=== PATIENT | male | born 1970 | race Caucasian/White ===

== ENCOUNTER 2020-02-02 20:55 | Emergency (ER) | payer BC ==
[2020-02-02 21:44] LABS: Absolute Lymphocytes (CBC) 2.9 K/uL (0.7-4.9); Basophils % 0.6 % (0-1.3); Lymphocytes % 33.7 % (15.3-44.8); MPV 8.4 fL (7.6-11.3); RBC Red Blood Cell Count 5.15 M/uL (4.33-5.43)
[2020-02-02 21:46] LABS: Protime INR 0.91
--- NOTE | 2020-02-02 21:59 | RAD REPORT ---
EXAM DESCRIPTION: Beth Single View02/02/2020 9:51 pm CLINICAL HISTORY: Chest pain COMPARISON: none FINDINGS: The lungs appear clear of acute infiltrate. The heart is normal size IMPRESSION: No acute abnormalities displayed
[2020-02-02 22:10] LABS: ALT/SGPT 39 U/L (12-78); AST/SGOT 15 U/L (15-37); Albumin 3.7 g/dL (3.4-5.0); Alkaline Phosphatase 78 U/L (45-117); BUN Blood Urea Nitrogen 14 mg/dL (7-18); Bicarbonate 26 mmol/L (21-32); Bilirubin Direct < 0.1 mg/dL (0-0.2); Bilirubin Total 0.3 mg/dL (0.2-1.0); Glucose Level 104 mg/dL (74-106); Magnesium 2.3 mg/dL (1.8-2.4); NT PRO-BNP 41 pg/mL (<125); Potassium 3.2 mmol/L (3.5-5.1); Protein, Total 7.1 g/dL (6.4-8.2); Sodium Level 140 mmol/L (136-145); Troponin (Emerg Dept Use Only) < 0.02 ng/mL (0.0-0.045)
--- NOTE | 2020-02-02 23:50 | EDPHYS ---
Physician Documentation [facility] Name: Reynold Billy Age: 49 yrs Sex: Male : 1970 Arrival Date: 02/02/2020 Time: 20:56 Bed 4 Private MD: ED Physician Joselito Ojeda HPI: 02/01 22:31 This 49 yrs old Male presents to ER via Ambulatory with complaints of Chest tw4 Pain. 22:31 The patient or guardian reports chest pain that is located primarily in the anterior tw4 chest wall. Onset: today. The pain does not radiate. Associated signs and symptoms: The patient has no apparent associated signs or symptoms. The chest pain is described as burning. Duration: The patient or guardian reports a single episode. Modifying factors: The symptoms are alleviated by nothing. the symptoms are aggravated by nothing. Severity of pain: At its worst the pain was moderate in the emergency department the pain is unchanged. The patient has not experienced similar symptoms in the past. Historical: - Allergies: 21:16 No Known Allergies; ca1 - Home Meds: 21:16 losartan oral oral [Active]; amlodipine oral [Active]; ca1 - PMHx: 21:16 Hypertension; ca1 - PSHx: 21:16 Elbow surg; ca1 - Immunization history:: Adult Immunizations up to date. - Social history:: Smoking status: Patient denies any tobacco usage or history of. ROS: 22:31 Constitutional: Negative for fever, chills, and weight loss, Eyes: Negative for injury, tw4 pain, redness, and discharge, Respiratory: Negative for shortness of breath, cough, wheezing, and pleuritic chest pain, Abdomen/GI: Negative for abdominal pain, nausea, vomiting, diarrhea, and constipation, Back: Negative for injury and pain, MS/Extremity: Negative for injury and deformity, Skin: Negative for injury, rash, and discoloration, Neuro: Negative for headache, weakness, numbness, tingling, and seizure. 22:31 Cardiovascular: Positive for chest pain, Negative for edema, orthopnea, palpitations, paroxysmal nocturnal dyspnea. Exam: 22:31 Constitutional: This is a well developed, well nourished patient who is awake, alert, tw4 and in no acute distress. Head/Face: Normocephalic, atraumatic. Chest/axilla: Normal chest wall appearance and motion. Nontender with no deformity. No lesions are appreciated. Cardiovascular: Regular rate and rhythm with a normal S1 and S2. No gallops, murmurs, or rubs. Normal PMI, no JVD. No pulse deficits. Respiratory: Lungs have equal breath sounds bilaterally, clear to auscultation and percussion. No rales, rhonchi or wheezes noted. No increased work of breathing, no retractions or nasal flaring. Abdomen/GI: Soft, non-tender, with normal bowel sounds. No distension or tympany. No guarding or rebound. No evidence of tenderness throughout. Back: No spinal tenderness. No costovertebral tenderness. Full range of motion. MS/ Extremity: Pulses equal, no cyanosis. Neurovascular intact. Full, normal range of motion. Neuro: Awake and alert, GCS 15, oriented to person, place, time, and situation. Cranial nerves II-XII grossly intact. Motor strength 5/5 in all extremities. Sensory grossly intact. Cerebellar exam normal. Normal gait. Vital Signs: 21:14 BP 130 / 84; Pulse 74; Resp 15 S; Temp 97.9(TE); Pulse Ox 96% on R/A; Weight 97.52 kg ca1 (R); Height 5 ft. 10 in. (177.80 cm) (R); Pain 1/10; 23:02 BP 136 / 91; Pulse 63; Resp 20 S; Pulse Ox 96% on R/A; jd3 02/02 00:03 BP 133 / 83; Pulse 65; Resp 17 S; Pulse Ox 95% on R/A; jd3 02/01 21:14 Body Mass Index 30.85 (97.52 kg, 177.80 cm) ca1 MDM: 02/01 22:31 Differential diagnosis: acute pericarditis, gastritis, pancreatitis, peptic ulcer tw4 disease, pericarditis, pneumonia, pneumothorax, pulmonary embolus. HEART Score: History: Moderately Suspicious (1), ECG: Non specific repolarization disturbance / LBTB / PM (1), Age: > 45 and < 65 years (1), Risk Factors: 1 or 2 risk factors (1), Troponin: < or = 1 x Normal Limit (0). Data reviewed: vital signs, nurses notes. Data interpreted: Pulse oximetry: Interpretation: normal. 23:49 Patient medically screened. tw4 07/12 21:26 Order name: Basic Metabolic Panel; Complete Time: 22:16 [facility] 02/01 22:17 Interpretation: Normal except: K 3.2; GFR 81; CL 108. 02/01 21:26 Order name: CBC with Diff; Complete Time: 22:16 [facility] 02/01 22:17 Interpretation: Normal except: EOSINOPHIL % 6.5. 02/01 21:26 Order name: LFT's; Complete Time: 22:16 [facility] 02/01 22:17 Interpretation: Within normal limits. 02/01 21:26 Order name: Magnesium; Complete Time: 22:16 02/01 22:18 Interpretation: Within normal limits: MG 2.3. 02/01 21:26 Order name: NT PRO-BNP; Complete Time: 22:16 02/01 22:18 Interpretation: Within normal limits: NT PRO-BNP 41. 02/01 21:26 Order name: PT-INR; Complete Time: 22:16 02/01 22:18 Interpretation: Within normal limits: PT 10.8. 02/01 21:14 Order name: EKG - Nurse/Tech; Complete Time: 21:14 [facility] 02/01 21:26 Order name: Troponin (emerg Dept Use Only); Complete Time: 22:16 02/01 22:18 Interpretation: Within normal limits: TROPED < 0.02. 02/01 21:26 Order name: XRAY Chest (1 view); Complete Time: 22:16 [facility] 02/01 21:26 Order name: Cardiac monitoring; Complete Time: : [facility] 02/01 21:26 Order name: IV Saline Lock; Complete Time: :37 02/01 21:26 Order name: Labs collected and sent; Complete Time: 21:37 [facility] 02/01 22:22 Order name: Troponin (emerg Dept Use Only) 02/01 21:26 Order name: O2 Per Protocol; Complete Time: :26 [facility] 02/01 21:26 Order name: O2 Sat Monitoring; Complete Time: 21:26 jd3 EC:31 Rate is 73 beats/min. Rhythm is regular. QRS [place] is Normal. ME interval is normal. QRS tw4 interval is normal. QT interval is normal. No Q waves. T waves are Normal. No ST changes noted. Clinical impression: Normal ECG. Interpreted by me. Reviewed by me. Administered Medications: No medications were administered Disposition: 02/02/20 23:49 Discharged to Home. Impression: Other chest pain. - Condition is Stable. - Discharge Instructions: Nonspecific Chest Pain, Pain Without a Known Cause, Nonspecific Chest Pain, [id number]. - Medication Reconciliation Form, Thank You Letter, Antibiotic Education, Prescription Opioid Use form. - Follow up: Private Physician; When: Upon discharge from the Emergency Department; Reason: Recheck today's complaints, Continuance of care, Re-evaluation by your physician. Follow up: Jon Neal MD; When: Upon discharge from the Emergency Department; Reason: Recheck today's complaints, Continuance of care, Re-evaluation by your physician. Follow up: Judd Vaca MD; When: Upon discharge from the Emergency Department; Reason: Recheck today's complaints, Continuance of care, Re-evaluation by your physician. - Problem is new. - Symptoms have improved. Signatures: Dispatcher [employer] Cheo Escalante RN RN jd3 Joselito Ojeda MD MD tw4 Maricarmen Huston RN RN ca1 Corrections: (The following items were deleted from the chart) 23:50 23:49 02/02/2020 23:49 Discharged to Home. Impression: Other chest pain. Condition is tw4 Stable. Forms are Medication Reconciliation Form, Thank You Letter, Antibiotic Education, Prescription Opioid Use. Follow up: Private Physician; When: Upon discharge from the Emergency Department; Reason: Recheck today's complaints, Continuance of care, Re-evaluation by your physician. Problem is new. Symptoms have improved. tw4 02/02 00:03 02/01 23:50 02/02/2020 23:49 Discharged to Home. Impression: Other chest pain. jd3 Condition is Stable. Discharge Instructions: Nonspecific Chest Pain, Pain Without a Known Cause, Nonspecific Chest Pain, [id number]. Forms are Medication Reconciliation Form, Thank You Letter, Antibiotic Education, Prescription Opioid Use. Follow up: Private Physician; When: Upon discharge from the Emergency Department; Reason: Recheck today's complaints, Continuance of care, Re-evaluation by your physician. Follow up: Jon Neal; When: Upon discharge from the Emergency Department; Reason: Recheck today's complaints, Continuance of care, Re-evaluation by your physician. Follow up: Judd Vaca; When: Upon discharge from the Emergency Department; Reason: Recheck today's complaints, Continuance of care, Re-evaluation by your physician. Problem is new. Symptoms have improved. tw4
--- NOTE | 2020-02-02 23:50 | ER ---
Nurse's Notes 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 Denies cough. No history of previous heart attack. Coronavirus screen: Proceed with normal triage. Patient denies a cough. Patient denies shortness of breath or difficulty breathing. Patient denies measured and/or subjective temperature greater than 100.4F prior to today's visit. Patient denies travel on a cruise ship or to a country the [facility] currently lists as an affected area. Patient denies contact with known and/or suspected case of COVID-19. Ebola Screen: Patient negative for fever greater than or equal to 101.5 degrees Fahrenheit, and additional compatible Ebola Virus Disease symptoms Patient denies exposure to infectious person. Patient denies travel to an Ebola-affected area in the 21 days before illness onset. No symptoms or risks identified at this time. Initial Sepsis Screen: Does the patient meet any 2 criteria? No. Patient's initial sepsis screen is negative. Does the patient have a suspected source of infection? No. Patient's initial sepsis screen is negative. Risk Assessment: Do you want to hurt yourself or someone else? Patient reports no desire to harm self or others. Onset of symptoms was February 02, 2020. 21:14 Method Of Arrival: Ambulatory ca1 21:14 Acuity: EDEL 3 ca1 Triage Assessment: 21:16 Cardiovascular: Rhythm is sinus rhythm. ca1 Historical: - Allergies: 21:16 No Known Allergies; ca1 - Home Meds: 21:16 losartan oral oral [Active]; amlodipine oral [Active]; ca1 - PMHx: 21:16 Hypertension; ca1 - PSHx: 21:16 Elbow surg; ca1 - Immunization history:: Adult Immunizations up to date. - Social history:: Smoking status: Patient denies any tobacco usage or history of. Screenin:39 Abuse screen: Denies threats or abuse. Nutritional screening: No deficits noted. jd3 Tuberculosis screening: No symptoms or risk factors identified. Fall Risk None identified. Assessment: 21:38 General: Appears in no apparent distress. comfortable, Behavior is calm, cooperative, jd3 appropriate for age. Pain: Complains of pain in chest Pain does not radiate. Quality of pain is described as pressure, Pain began suddenly. Neuro: Level of Consciousness is awake, alert, obeys commands, Oriented to person, place, time, situation. Cardiovascular: Heart tones S1 S2 present Capillary refill < 3 seconds Patient's skin is warm and dry. Rhythm is regular. Respiratory: Airway is patent Respiratory effort is even, unlabored, Respiratory pattern is regular, symmetrical, Breath sounds are clear bilaterally. Denies cough, shortness of breath. GI: No signs and/or symptoms were reported involving the gastrointestinal system. : No signs and/or symptoms were reported regarding the genitourinary system. EENT: No signs and/or symptoms were reported regarding the EENT system. Derm: Skin is intact, Skin is dry, Skin is normal, Skin temperature is warm. Musculoskeletal: Circulation, motion, and sensation intact. Range of motion: intact in all extremities. 23:01 Reassessment: Patient appears in no apparent distress at this time. No changes from jd3 previously documented assessment. Patient and/or family updated on plan of care and expected duration. Pain level reassessed. Patient is alert, oriented x 3, equal unlabored respirations, skin warm/dry/pink. 02/02 00:02 Reassessment: Patient appears in no apparent distress at this time. Patient and/or jd3 family updated on plan of care and expected duration. Pain level reassessed. Patient is alert, oriented x 3, equal unlabored respirations, skin warm/dry/pink. Patient states feeling better. Vital Signs: 02/01 21:14 BP 130 / 84; Pulse 74; Resp 15 S; Temp 97.9(TE); Pulse Ox 96% on R/A; Weight 97.52 kg ca1 (R); Height 5 ft. 10 in. (177.80 cm) (R); Pain 08/02; 23:02 BP 136 / 91; Pulse 63; Resp 20 S; Pulse Ox 96% on R/A; jd3 02/02 00:03 BP 133 / 83; Pulse 65; Resp 17 S; Pulse Ox 95% on R/A; jd3 02/01 21:14 Body Mass Index 30.85 (97.52 kg, 177.80 cm) ca1 ED Course: 02/01 20:56 Patient arrived in ED. ds1 21:05 Joselito Ojeda MD is Attending Physician. tw4 21:11 Cheo Ward, RN is Primary Nurse. jd3 21:16 Triage completed. ca1 21:16 Arm band placed on right wrist. EKG completed in triage. Results shown to MD. ca1 21:37 Inserted saline lock: 20 gauge in right antecubital area, using aseptic technique. jd3 Blood collected. Patient maintains SpO2 saturation greater than 95% on room air. 21:39 Patient has correct armband on for positive identification. Bed in low position. Call jd3 light in reach. Side rails up X 1. security monitor on. Pulse ox on. NIBP on. 21:51 XRAY Chest (1 view) In Process Unspecified. EDNM 23:49 Jon Neal MD is Referral Physician. tw4 23:49 Judd Vaca MD is Referral Physician. tw4 02/02 00:02 No provider procedures requiring assistance completed. IV discontinued, intact, jd3 bleeding controlled, No redness/swelling at site. Pressure dressing applied. Administered Medications: No medications were administered Outcome: 02/01 23:49 Discharge ordered by . tw4 02/02 00:02 Discharged to home ambulatory, with family. jd3 Condition: stable Discharge instructions given to patient, Instructed on discharge instructions, follow up and referral plans. Demonstrated understanding of instructions, follow-up care. 00:03 Patient left the ED. jd3 Signatures: Dispatcher [employer] [facility] [place] ds1 Cheo Ward, STACY RN jJoselito Marcial MD MD tw4 Maricarmen Huston RN RN ca1
[2020-02-03 00:44] VITALS: TEMP 97.9
[2020-02-03 00:59] VITALS: BP 133/83; O2SAT 95
== END 2020-02-03 00:03 | disposition home or self-care (01) ==
LOC: ER 20:55
DX: R07.89 Other chest pain (principal); I10 Essential (primary) hypertension
CPT/HCPCS: 36415; 71045; 80048; 80076; 83735; 83880; 84484; 85025; 85610; 99285